=== PATIENT | male | born 1945 | race Two or more races ===

== ENCOUNTER 2016-06-22 10:10 | Emergency (ER) | payer OTHER ==
[~2016-06-22 10:10] MED LIST: ASPI-231 PO; BUSP10TA90 PO; CLON0.2T PO; DIPH50TA9 PO; FLUO20CA19 PO; FURO40TA4 PO; GAB400C PO; INSLANTI SC; MECL-87 PO; POTA10TA51 PO; PRAV20TA3 PO; SITA100T7 PO; VERA180T14 PO
[2016-06-22] MEDS ORDERED: SODIUM CHLORIDE 0.9% 250 ML IV ONE (16:05)
[2016-06-22] MEDS ORDERED: TETANUS-DIPTH-ACEL PERTUSSIS 0.5ML SYRG IM ONE (16:15)
[2016-06-22 16:50] LABS: Basophils # (auto) 0 uL; Basophils % (auto) 0.4 % (0.0-2.0); Eosinophils # (auto) 0.2 uL; Eosinophils % (auto) 3.6 % (0.0-7.0); Hematocrit 44.3 % (41.0-53.0); Hemoglobin 14.5 g/dL (13.5-17.5); Lymphocytes # (auto) 1.7 uL; Mean Corpuscular Hemoglobin 29.1 pg (28.0-32.0); Mean Corpuscular Hgb Conc. 32.6 g/dL (32.0-36.0); Mean Corpuscular Volume 89.3 fL (80.0-100.0); Mean Platelet Volume 9.1 fL (7.4-10.4); Monocytes # (auto) 0.4 uL; Monocytes % (auto) 5.9 % (0.0-12.0); Neutrophils # (auto) 4.2 uL; Neutrophils % (auto) 64.1 % (37.0-80.0); Platelet Count (auto) 260 10^3/uL (140-450); Red Cell Distribution Width 13.6 % (11.6-16.0); White Blood Cell 6.5 10^3/uL (4.4-10.8)
[2016-06-22 17:04] LABS: Albumin 3.6 g/dL (3.4-5.0); Calcium 8.7 mg/dL (8.5-10.1); Magnesium 2.4 mg/dL (1.6-2.6); Potassium 4.3 mmol/L (3.5-5.1)
[2016-06-22 17:09] LABS: Bilirubin, Total 0.5 mg/dL (0.2-1.0); Total Protein 7.7 g/dL (6.4-8.2)
[2016-06-22] MEDS ORDERED: IOHEXOL 300 MG/ML 100ML BOTTLE IJ ONE (17:20)
[2016-06-22 17:27] LABS: INR 1.01 (0.9-1.15); Partial Thromboplastin Time 28.6 sec (22.64-33.71); Prothrombin Time 10.4 sec (9.37-12.3)
[2016-06-22] MEDS ORDERED: cloNIDine HCL 0.1 MG TAB ONE (18:48)
[2016-06-22 18:57] LABS: Urine Bilirubin Negative (Negative); Urine Blood Negative /uL (Negative); Urine Color Yellow (Yellow); Urine Ketone Negative (Negative); Urine Nitrite Negative (Negative); Urine RBC 2 /hpf (0 - 3); Urine Urobilinogen Normal (Negative)
[2016-06-22] MEDS ORDERED: cloNIDine HCL 0.1 MG TAB PO ONE (19:00)
[2016-06-22 19:01] LABS: Urine Glucose 4+ mg/dL (Normal)
[2016-06-22 20:12] VITALS: BP 154/85
== END 2016-06-22 20:29 | disposition left against medical advice (07) ==
LOC: ER 10:31
DX: S39.91XA Unspecified injury of abdomen, initial encounter (principal); S20.212A Contusion of left front wall of thorax, initial encounter; S80.212A Abrasion, left knee, initial encounter; S80.211A Abrasion, right knee, initial encounter; M25.462 Effusion, left knee; M25.461 Effusion, right knee; M19.90 Unspecified osteoarthritis, unspecified site; I25.810 Atherosclerosis of coronary artery bypass graft(s) without angina pectoris; E11.9 Type 2 diabetes mellitus without complications; E78.5 Hyperlipidemia, unspecified; I25.2 Old myocardial infarction; Z23 Encounter for immunization; I11.0 Hypertensive heart disease with heart failure; I50.9 Heart failure, unspecified; W18.39XA Other fall on same level, initial encounter; Y93.89 Activity, other specified; Y99.8 Other external cause status; Y92.89 Other specified places as the place of occurrence of the external cause
CPT/HCPCS: 36415; 71020; 71101; 73562; 74177; 80053; 81001; 83735; 85025; 85610; 85730; 90471; 90715; 93005; 94761; 96360; 99285; J7050; Q9967

== ENCOUNTER 2016-07-02 11:31 | Inpatient (IN) | payer OTHER ==
[~2016-07-02] VITALS: Ht 165.1 cm; Wt 94.8 kg
[2016-07-02 12:12] LABS: Basophils # (auto) 0 uL; Eosinophils # (auto) 0 uL; Eosinophils % (auto) 0.2 % (0.0-7.0); Hematocrit 40.9 % (41.0-53.0); Hemoglobin 13.4 g/dL (13.5-17.5); Lymphocytes # (auto) 1.1 uL; Lymphocytes % (auto) 8.5 % (10.0-50.0); Mean Corpuscular Hemoglobin 29.1 pg (28.0-32.0); Mean Corpuscular Hgb Conc. 32.8 g/dL (32.0-36.0); Mean Corpuscular Volume 88.6 fL (80.0-100.0); Mean Platelet Volume 8.4 fL (7.4-10.4); Monocytes # (auto) 0.3 uL; Monocytes % (auto) 2.6 % (0.0-12.0); Neutrophils % (auto) 88.7 % (37.0-80.0); Platelet Count (auto) 291 10^3/uL (140-450); Red Cell Distribution Width 13.7 % (11.6-16.0); White Blood Cell 13.5 10^3/uL (4.4-10.8)
[2016-07-02 12:28] LABS: INR 1.01 (0.9-1.15); Partial Thromboplastin Time 29.9 sec (22.64-33.71); Prothrombin Time 10.4 sec (9.37-12.3)
[2016-07-02 12:29] LABS: Albumin 3.2 g/dL (3.4-5.0); BUN/Creatinine Ratio 15.3; Calcium 8.6 mg/dL (8.5-10.1); Magnesium 2.1 mg/dL (1.6-2.6); Potassium 4.4 mmol/L (3.5-5.1)
[2016-07-02 12:33] LABS: Bilirubin, Total 0.5 mg/dL (0.2-1.0); Total Protein 7.8 g/dL (6.4-8.2)
[2016-07-02 12:54] LABS: B-Type Natriuretic Peptide 42.83 pg/mL (0-100)
[2016-07-02 13:02] LABS: Temperature: 22.5 C (20.0-25.0)
[2016-07-02] MEDS ORDERED: cefTRIAXone 1GM/50ML D5W 50 ML IV ONE (17:45)
[2016-07-02] MEDS ORDERED: TEMAZEPAM 15 MG CAP PO PRN (19:45)
[2016-07-02] MEDS ORDERED: DEXTROSE (50%) 50ML SYRG IV PRN ×2 (19:45)
[2016-07-02] MEDS ORDERED: LORazepam 0.5 MG TAB PO PRN (19:45)
[2016-07-02] MEDS ORDERED: ALBUTEROL SULF 2.5 MG/0.5ML(0.5%) NEB SOLN NEB PRN (19:45)
[2016-07-02] MEDS ORDERED: ACETAMINOPHEN 500 MG TAB PO PRN (19:45)
[2016-07-02] MEDS ORDERED: NITROGLYCERIN 0.4 MG SL TAB SL PRN (19:45)
[2016-07-02] MEDS ORDERED: MORPHINE SULF INJ 2 MG/ML SYRINGE 1ML IV PRN ×2 (19:45)
[2016-07-02] MEDS ORDERED: OSELTAMIVIR 75 MG CAP PO ONE (19:45)
[2016-07-02] MEDS ORDERED: PROMETHAZINE HCL 25 MG/ML 1ML IV PRN (19:45)
[2016-07-02] MEDS ORDERED: LACTULOSE 20Gm/30ML SOLN PO PRN (19:45)
[2016-07-02] MEDS: HYDROcodone-ACET 5/325MG TAB PO PRN ×9 (19:51→21:37)
[2016-07-02] MEDS: InsuLIN REG 1unit/0.01ml Soln (100units/ml) SC SCH (20:09)
[2016-07-02] MEDS: ACCU-CHEK COMFORT CURVE STRIP VI SCH (20:16)
[2016-07-02] MEDS ORDERED: LEVOFLOXACIN 500MG 100 ML IV SCH (21:00)
[2016-07-02 22:00] VITALS: BP 138/67
[2016-07-02] MEDS: SODIUM CHLOR 0.9% PF (SALINE LOCK) 10ML VIAL IV SCH (22:48)
[2016-07-02] MEDS: CARVEDILOL 3.125 MG TAB PO SCH (22:49)
[2016-07-02] MEDS: FUROSEMIDE 40 MG/4 ML VIAL IV SCH (23:06)
[2016-07-03] MEDS: ACCU-CHEK COMFORT CURVE STRIP VI SCH ×5 (00:37→16:00)
[2016-07-03] MEDS: InsuLIN REG 1unit/0.01ml Soln (100units/ml) SC SCH ×5 (00:42→16:00)
[2016-07-03 03:13] VITALS: BP 138/67
[2016-07-03 04:34] LABS: Urine Bilirubin Negative (Negative); Urine Blood Negative /uL (Negative); Urine Color Yellow (Yellow); Urine Hyaline Cast MOD /lpf (0 - 2); Urine Ketone Negative (Negative); Urine Mucus FEW (None Seen); Urine Nitrite Negative (Negative); Urine RBC 1 /hpf (0 - 3); Urine Squamous Epithelial Cell FEW /hpf (<5); Urine Urobilinogen Normal (Negative); Urine pH 5.5 (5.0-8.0)
[2016-07-03 04:36] VITALS: BP 156/79
[2016-07-03 04:37] LABS: Urine Glucose 3+ mg/dL (Normal)
[2016-07-03] MEDS: SODIUM CHLOR 0.9% PF (SALINE LOCK) 10ML VIAL IV SCH ×2 (05:19→14:29)
[2016-07-03 05:43] LABS: Basophils # (auto) 0 uL; Basophils % (auto) 0.3 % (0.0-2.0); Eosinophils # (auto) 0.1 uL; Eosinophils % (auto) 1.3 % (0.0-7.0); Hematocrit 37.9 % (41.0-53.0); Hemoglobin 12.4 g/dL (13.5-17.5); Lymphocytes # (auto) 1.3 uL; Lymphocytes % (auto) 13.1 % (10.0-50.0); Mean Corpuscular Hemoglobin 29.4 pg (28.0-32.0); Mean Corpuscular Hgb Conc. 32.8 g/dL (32.0-36.0); Mean Corpuscular Volume 89.5 fL (80.0-100.0); Mean Platelet Volume 8.6 fL (7.4-10.4); Monocytes # (auto) 0.8 uL; Monocytes % (auto) 7.9 % (0.0-12.0); Neutrophils # (auto) 7.8 uL; Neutrophils % (auto) 77.4 % (37.0-80.0); Platelet Count (auto) 272 10^3/uL (140-450); Red Cell Distribution Width 13.8 % (11.6-16.0); White Blood Cell 10.1 10^3/uL (4.4-10.8)
[2016-07-03] MEDS: ALBUTEROL SULF 2.5 MG/0.5ML(0.5%) NEB SOLN NEB SCH ×2 (06:00)
[2016-07-03 06:06] LABS: Cholesterol 195 mg/dL (<200); HDL Cholesterol 56 mg/dL (40-59); LDL Cholesterol 130 mg/dL (<100); Triglycerides 139 mg/dL (<150)
[2016-07-03 06:43] LABS: B-Type Natriuretic Peptide 91.2 pg/mL (0-100)
[2016-07-03 08:48] VITALS: BP 145/74
[2016-07-03] MEDS: FUROSEMIDE 40 MG/4 ML VIAL IV SCH (09:24)
[2016-07-03] MEDS: CARVEDILOL 3.125 MG TAB PO SCH (09:26)
[2016-07-03] MEDS ORDERED: ENALAPRIL MALEATE 2.5 MG TAB PO SCH (10:00)
[2016-07-03] MEDS ORDERED: OSELTAMIVIR 75 MG CAP PO SCH (10:00)
[2016-07-03] MEDS ORDERED: ENOXAPARIN SOD 40 MG/0.4 ML SYRINGE SC SCH ×3 (10:00)
[2016-07-03] MEDS ORDERED: ASPirin 81 mg TAB PO SCH (10:00)
[2016-07-03] MEDS ORDERED: NITROGLYCERIN 0.2MG/HR TOPICAL PATCH TD SCH (10:00)
[2016-07-03] MEDS ORDERED: POTASSIUM CHL 20 Meq TABLET PO SCH (10:00)
[2016-07-03 13:00] VITALS: BP 151/73
[2016-07-03] MEDS ORDERED: LEVO500T3 PO (16:28)
[2016-07-03] MEDS ORDERED: DEXT1SYP6 PO (16:28)
[2016-07-03] MEDS ORDERED: ALBUAER3 IN (16:28)
[2016-07-03 16:41] VITALS: BP 144/72
[2016-07-03 17:00] VITALS: BP 144/72
== END 2016-07-03 19:05 | disposition home health service (06) | DRG 291 ==
LOC: EDBD 11:31 → ER 11:34 → TELE-WESTW 11:35
PROVIDERS: ADMIT Internal Medicine; ATTEND Internal Medicine
DX: I50.43 Acute on chronic combined systolic (congestive) and diastolic (congestive) heart failure (principal); J18.9 Pneumonia, unspecified organism; I25.10 Atherosclerotic heart disease of native coronary artery without angina pectoris; I50.9 Heart failure, unspecified; E78.5 Hyperlipidemia, unspecified; F41.9 Anxiety disorder, unspecified; I11.0 Hypertensive heart disease with heart failure; M19.90 Unspecified osteoarthritis, unspecified site; E11.9 Type 2 diabetes mellitus without complications; E66.01 Morbid (severe) obesity due to excess calories; Z68.34 Body mass index [BMI] 34.0-34.9, adult; Z95.1 Presence of aortocoronary bypass graft; I25.2 Old myocardial infarction; Z82.49 Family history of ischemic heart disease and other diseases of the circulatory system; Z83.3 Family history of diabetes mellitus; Z23 Encounter for immunization
CPT/HCPCS: 36415; 71020; 80053; 80061; 81001; 82550; 82962; 83036; 83735; 83880; 84443; 84484; 85025; 85049; 85379; 85610; 85730; 87040; 87070; 87081; 87205; 87400; 93005; 94640; 96365; 96375; J0696; J1815; J1956